=== PATIENT | female | born 1990 | race African-American/Black ===

== ENCOUNTER 2018-07-21 18:26 | Emergency (ER) | payer OTHER ==
[~2018-07-21] VITALS: Ht 162.6 cm; Wt 81.7 kg
[2018-07-21 18:26] VITALS: BP 112/73
[~2018-07-21 18:26] MED LIST: ALBUTEROL2.5 MG/31 INH; ANUSOL-HC30 GM RC; CITRUCEL POWD1418 GM PO; CLARITIN10 MG PO; NOHOMEMEDICATIONS; PREDNISONE 20 M20 M1 PO; PREDNISONE 20 M20 MG PO; PROMETHAZINE D480 ML PO; PROVENTIL HFA6.7 G1 INH; VENTOLIN HFA INH8 GM IH; ZPAK PO
== END 2018-07-21 20:17 | disposition home or self-care (01) ==
LOC: ER 18:26
DX: S01.81XA Laceration without foreign body of other part of head, initial encounter (principal); F17.210 Nicotine dependence, cigarettes, uncomplicated; J45.909 Unspecified asthma, uncomplicated; W22.8XXA Striking against or struck by other objects, initial encounter; Y92.89 Other specified places as the place of occurrence of the external cause; Y93.89 Activity, other specified; Y99.8 Other external cause status

== ENCOUNTER 2019-03-07 05:02 | Emergency (ER) | payer OTHER ==
[~2019-03-07] VITALS: Ht 162.6 cm; Wt 86.2 kg
[2019-03-07] MEDS ORDERED: CEFACLOR500 MG PO (05:36)
[2019-03-07] MEDS ORDERED: MOBIC15 MG PO (05:47)
[2019-03-07 06:05] VITALS: BP 120/76
== END 2019-03-07 06:05 | disposition home or self-care (01) ==
LOC: ER 05:02
DX: M25.561 Pain in right knee (principal); M25.571 Pain in right ankle and joints of right foot; J45.909 Unspecified asthma, uncomplicated; F17.210 Nicotine dependence, cigarettes, uncomplicated; W01.0XXA Fall on same level from slipping, tripping and stumbling without subsequent striking against object, initial encounter; Y93.01 Activity, walking, marching and hiking; Y92.89 Other specified places as the place of occurrence of the external cause; Y99.8 Other external cause status